=== PATIENT | male | born 1965 | race Caucasian/White ===

== ENCOUNTER 2018-05-17 07:47 | Emergency (ER) ==
[2018-05-17 07:57] VITALS: BP 115/73; TEMP 98.2; BMI 24.4
[2018-05-17] MEDS ORDERED: TORADOL IM STA (07:59)
[2018-05-17] MEDS ORDERED: TORADOL ONE (08:01)
--- NOTE | 2018-05-17 08:29 | DI ---
EXAM: Frontal chest, left ribs four views HISTORY: Fall, rib pain. FINDINGS / IMPRESSION: There is a minimally displaced fracture of a posteriolateral left rib which i s thought to represent the 7th or 8th. No other fractures are seen. The lungs reveal no pleural flu id or pneumothorax. No consolidations. Normal mediastinum.
--- NOTE | 2018-05-17 08:35 | ED.PDOC ---
General ED Provider: Dr. GUS AGOSTO MD Chief Complaint: Fall Stated Complaint: fell out of deer stand Time Seen by Physician: 07:45 Mode of Arrival: Walk-In Information Source: Patient Exam Limitations: No limitations Nursing and Triage Documentation Reviewed and Agree: Yes Does patient meet sepsis criteria?: No If yes, has appropriate treatment been initiated?: Yes System Inflammatory Response Syndrome: Not Applicable Sepsis Protocol: For patient's 13 years and over: Temp is 96.8 and below OR 101 and greater Pulse >90 BPM Resp >20/minute Acutely Altered Mental Status Are patient's symptoms suggestive of a new infection, such as: -Pneumonia -Skin, Soft Tissue -Endocarditis -UTI -Bone, Joint Infection -Implantable Device -Acute Abdominal Infection -Wound Infection -Meningitis -Blood Stream Catheter Infection -Unknown Trauma/Injury Complaint Exam - Trauma Complaint/Exam Location of Pain or Injury: Reports: Chest Mechanism of Injury: Reports: Fall Onset/Duration: 30 min Symptoms Are: Still present Timing of Treatment: Immediate Initial Severity: Moderate Current Severity: Moderate Character: Reports: Sharp Aggravating: Reports: Movement Alleviating: Reports: Rest, Immobilization Penetrating Injury Risk Factors: Reports: None Related Surgical History: Reports: None Immobilization Removed Post Exam: No Skin Findings: Present: Normal findings Differential Diagnoses: Contusions, Fracture Review of Systems - Review Of Systems Constitutional: Reports: No symptoms Eyes: Reports: No symptoms Ears, Nose, Mouth, Throat: Reports: No symptoms Respiratory: Reports: No symptoms Cardiac: Reports: No symptoms GI: Reports: No symptoms : Reports: No symptoms Musculoskeletal: Reports: Back pain Skin: Reports: No symptoms Neurological: Reports: No symptoms Endocrine: Reports: No symptoms Hematologic/Lymphatic: Reports: No symptoms All Other Systems: Reviewed and Negative Past Medical History - Past Medical History Previously Healthy: Yes Endocrine: Reports: None Cardiovascular: Reports: None Respiratory: Reports: None Hematological: Reports: None Gastrointestinal: Reports: GERD Genitourinary: Reports: None Neuro/Psych: Reports: None Musculoskeletal: Reports: None Cancer: Reports: None - Surgical History General Surgical History: Reports: None - Family History Family History: Reports: None - Social History Smoking Status: Never smoker Hx Substance Use: No Alcohol Screening: None Physical Exam - Physical Exam Appearance: Well-appearing, No pain distress, Well-nourished Ill-appearing: None Pain Distress: Moderate Eyes: NEO, EOMI, Conjunctiva clear ENT: Ears normal, Nose normal, Oropharynx normal Respiratory: Airway patent, Breath sounds clear, Breath sounds equal, Respirations nonlabored Cardiovascular: RRR, Pulses normal, No rub, No murmur GI/: Soft, Nontender, No masses, Bowel sounds normal, No Organomegaly Musculoskeletal: Limited strength Skin: Warm, Dry, Normal color Neurological: Sensation intact, Motor intact, Reflexes intact, Cranial nerves intact, Alert, Oriented Psychiatric: Affect appropriate, Mood appropriate Critical Care Note - Critical Care Note Total Time (mins): 0 Course - Course Orders, Labs, Meds: Orders Category Date Time Status Ketorolac Tromethamine [Toradol] MEDS 05/17/18 08:01 Discontinued 60 mg .ROUTE .STK-MED ONE Ketorolac Tromethamine [Toradol] MEDS 05/17/18 07:59 Discontinued 60 mg IM ONCE STA RIBS, W/PA CHEST LEFT Stat RADS 05/17/18 07:58 Completed Medications Discontinued Medications Generic Name Dose Route Start Last Admin Trade Name Freq PRN Reason Stop Dose Admin Ketorolac Tromethamine 60 mg 05/17/18 07:59 05/17/18 08:03 Toradol IM 05/17/18 08:00 60 mg ONCE STA Administration Vital Signs: Temp Pulse Resp BP Pulse Ox 05/17/18 07:48 98.2 F 77 24 115/73 97 Departure - Departure Time of Disposition: 08:45 Disposition: HOME SELF-CARE Discharge Problem: Fracture, rib Instructions: Rib Fracture (ED) Condition: Stable Pt referred to PMD for follow-up: Yes IPMP verified?: No Prescriptions: Ketorolac Tromethamine [Toradol] 10 mg PO BID 5 Days #10 tablet NS Allergies/Adverse Reactions: Allergies Penicillins Adverse Reaction (Verified 05/17/18 07:48) Home Medications: Ambulatory Orders Ketorolac Tromethamine [Toradol] 10 mg PO BID 5 Days #10 tablet NS 05/17/18 Disposition Discussed With: Patient
== END 2018-05-17 11:17 | disposition home or self-care (01) ==
LOC: ED 07:47
DX: S22.32XA Fracture of one rib, left side, initial encounter for closed fracture (principal); R31.9 Hematuria, unspecified; M54.9 Dorsalgia, unspecified; W17.89XA Other fall from one level to another, initial encounter
CPT/HCPCS: 81001; 96372; 99283